=== PATIENT | male | born 1965 | race African-American/Black ===

== ENCOUNTER 2019-11-06 17:05 | Emergency (ER) | payer MEDICAID ==
[~2019-11-06] VITALS: Ht 175.3 cm; Wt 82.4 kg
[~2019-11-06 17:05] MED LIST: UNK MEDS
[2019-11-07 05:47] LABS: BASOPHILS % 2.9 % (0.0-2.0); EOSINOPHILS % 4.4 % (0.0-5.0); HEMOGLOBIN. 14.5 g/dL (14.0-18.0); LYMPHOCYTES % 15.1 % (20.0-50.0); MEAN CORPUSCULAR HEMOGLOBIN 30.6 pg (28.0-32.0); MEAN PLATELET VOLUME 9.6 fl (7.4-10.4); MONOCYTES % 11.8 % (2.0-8.0); NEUTROPHILS % 65.8 % (40.0-76.0); PLATELET 215 x1000/uL (130-400); RED BLOOD CELL COUNT 4.73 mill/uL (4.7-6.1); RED CELL DISTRIBUTION WIDTH 13.1 % (11.6-14.6)
[2019-11-07 06:24] LABS: CHLORIDE 110 mEq/L (98-107)
[2019-11-07] MEDS ORDERED: MAGNESIUM/ALUMINUM HYDROXIDE/SIMETHICONE 30ML UDC PO ONE (07:45)
[2019-11-07] MEDS ORDERED: HYDROCODONE/ACETAMINOPHEN 5/325MG TABLET PO ONE (10:15)
[2019-11-07 11:01] VITALS: BP 152/82
== END 2019-11-07 11:03 | disposition home or self-care (01) ==
LOC: ER 17:05
DX: K76.9 Liver disease, unspecified (principal); K86.9 Disease of pancreas, unspecified; R74.0 Nonspecific elevation of levels of transaminase and lactic acid dehydrogenase [LDH]; R10.9 Unspecified abdominal pain; M19.90 Unspecified osteoarthritis, unspecified site; J45.909 Unspecified asthma, uncomplicated; I50.9 Heart failure, unspecified; Z88.2 Allergy status to sulfonamides; Z88.8 Allergy status to other drugs, medicaments and biological substances
CPT/HCPCS: 36415; 74021; 76700; 80053; 85025; 99284